=== PATIENT | female | born 1990 | race Two or more races ===

== ENCOUNTER 2017-07-15 14:39 | Emergency (ER) | payer SELFPAY ==
[~2017-07-15] VITALS: Ht 149.9 cm; Wt 54.4 kg
[2017-07-15 14:45] VITALS: BP 143/78
[2017-07-15] MEDS ORDERED: FLUC150T PO ×3 (15:24→15:46)
--- NOTE | 2017-07-15 15:26 | PHYS DOC ---
Past Medical History Past Medical History: No Pertinent History Past Surgical History: Alcohol Use: None Drug Use: None Adult General Chief Complaint Chief Complaint: SKIN PROBLEM HPI HPI Patient is a 26 year old female presents to the emergency department with round red areas noted on the right forearm, right breast and left scalp. Patient states she has these areas for over a week. She denies drainage or discharge noted from the sites. Patient states she was seen in a clinic in which they told her she had MRSA patient states they did not place her on antibiotics. Patient also states that she had place tinea capitus cream over the area without relief. Review of Systems Review of Systems Constitutional: Denies fever or chills [] Eyes: Denies change in visual acuity, redness, or eye pain [] HENT: Denies nasal congestion or sore throat [] Respiratory: Denies cough or shortness of breath [] Cardiovascular: No additional information not addressed in HPI [] GI: Denies abdominal pain, nausea, vomiting, bloody stools or diarrhea [] : Denies dysuria or hematuria [] Musculoskeletal: Denies back pain or joint pain [] Integument: rash denies skin lesions [] Neurologic: Denies headache, focal weakness or sensory changes [] Endocrine: Denies polyuria or polydipsia [] Physical Exam Physical Exam Constitutional: Well developed, well nourished, no acute distress, non-toxic appearance. [] HENT: Normocephalic, atraumatic, bilateral external ears normal, oropharynx moist, no oral exudates, nose normal. [] Eyes: PERRLA, EOMI, conjunctiva normal, no discharge. [] Neck: Normal range of motion, no tenderness, supple, no stridor. [] Cardiovascular:Heart rate regular rhythm, no murmur [] Lungs & Thorax: Bilateral breath sounds clear to auscultation [] Skin: Warm, dry, no erythema, Red round rash noted on the left scalp area, right breast and right forearm. No drainage or discharge noted from the site. Center of the breast rash appear yellow Extremities: No tenderness, no cyanosis, no clubbing, ROM intact, no edema. [] Neurologic: Alert and oriented X 3, normal motor function, normal sensory function, no focal deficits noted. [] Psychologic: Affect normal, judgement normal, mood normal. [] Current Patient Data Vital Signs Vital Signs Date Time Temp Pulse Resp B/P (MAP) Pulse Ox O2 Delivery O2 Flow Rate FiO2 07/15/17 14:45 98.1 86 18 95 Room Air 98.1 EKG EKG [] Radiology/Procedures Radiology/Procedures [] Course & Med Decision Making Course & Med Decision Making Pertinent Labs and Imaging studies reviewed. (See chart for details) Patient will be discharged home in stable condition. She will be discharged home with diflucan. Keep the areas clean and dry. Clean the sites with soap and water. Followup with primary care provider in 3-5 days. Signs and symptoms to return to the emergency department have been provided. Recommended the patient to stop breast feeding for 72 hours after taking the medication, explained that she will need to pump. Patient agrees with discharge instructions, treatment regimen and followup recommendations. All questions and concerns answered at bedside. [] Dragon Disclaimer Dragon Disclaimer This electronic medical record was generated, in whole or in part, using a voice recognition dictation system. Departure Departure Impression: Primary Impression: Tinea corporis Disposition: HOME, SELF-CARE Condition: STABLE Patient Instructions: Body Ringworm Additional Instructions: Activity s tolerated Medication as prescribed You need to pump and dump for 72 hours after taking the medication Keep the areas clean and dry Clean the sites with soap and water Followup with primary care provider in 3-5 days Return to emergency department as needed for signs and symptoms that become worse. Scripts Fluconazole (DIFLUCAN) 150 Mg Tablet 1 TAB PO WEEKLY, #4 TAB 0 Refills Prov: RODRIGUE CHARLES APRN 07/15/17 RODRIGUE CHARLES APRN Jul 15, 2017 15:26
== END 2017-07-15 15:48 | disposition home or self-care (01) ==
LOC: ER 14:39
DX: B35.4 Tinea corporis (principal)
CPT/HCPCS: 99283